=== PATIENT | female | born 1965 | race Caucasian/White ===

== ENCOUNTER 2025-04-21 08:50 | Day surgery (SDC) | payer BC ==
[2025-04-20 09:01] VITALS: BMI 32.1
[~2025-04-21 08:50] MED LIST: LIDOCAINE 1% (10MG/ML) FOR IV START INTRADERMA PRN; ONDANSETRON 4 MG/2 ML VIAL IVP PRN
[2025-04-21 09:40] VITALS: RESP 16; TEMP 97.7
[2025-04-21] MEDS: LACTATED RINGERS 1,000 ML IV SCH (09:40)
[2025-04-21] MEDS: IV FLUID CONTINUATION 1,000 ML IV ONE (10:18)
[2025-04-21] MEDS ORDERED: PROPOFOL 10 MG/ML 20 ML VIAL IV ONE (10:20)
--- NOTE | 2025-04-21 10:49 | P.PCN ---
Date of Procedure: 04/21/25 Procedure(s) Performed: BRIEF HISTORY: Patient is a 60-year-old pleasant white female scheduled for an elective colonoscopy as a part of screening for colon cancer. PROCEDURE PERFORMED: Colonoscopy up to hepatic flexure. PREOPERATIVE DIAGNOSIS: Screening for colon cancer. IV sedation per Anesthesia. PROCEDURE: After informed consent was obtained, the patient, was brought into the endoscopy unit. IV sedation was administered by Anesthesia under continuous monitoring. Digital rectal examination was normal. Initially the Olympus CF-160 flexible video colonoscope was then inserted in the rectum, gradually advanced into the hepatic flexure and despite multiple attempts and giving abdominal pressure I was not able to advance the scope any further. The scope was removed and a pediatric colonoscopy was then introduced to the rectum and gradually advanced into the transverse colon and once again despite multiple attempts with abdominal pressure and changing patient's position I was not able to advance the scope any further. At this time the scope was gradually being withdrawn. Prep was excellent. Mucosa, transverse colon, descending colon, sigmoid colon, and rectum appeared normal. Scattered sigmoid diverticulosis seen. Retroflexion was performed in the rectum and no lesions were seen. The patient tolerated the procedure well. IMPRESSION: Normal-appearing colon from rectum to hepatic flexure with no evidence of colitis or colorectal neoplasia Scattered sigmoid diverticulosis. RECOMMENDATIONS: Findings of this examination were discussed with the patient as well as her family. She will be scheduled for a barium enema to evaluate the right colon..
[2025-04-21 11:11] VITALS: BP 114/73; PULSE 63
--- NOTE | 2025-04-21 16:23 | FL ---
EXAMINATION TYPE: FL barium enema, single contrast DATE OF EXAM: 04/21/2025 COMPARISON: None CLINICAL INDICATION: Female, 60 years old with history of incomplete colonoscopy; PHH, chronic consti pation, incomplete screening colonoscopy today TECHNIQUE: A single contrast barium enema study is performed. A total of 2 minutes 19 seconds of fl uoroscopic time was utilized during procedure and 53 images obtained. Total dose area product (DAP) in uGy*m?, mGy*cm? (or similar): 150 mGycm2. FINDINGS: Labor Delivery Specialist view of the abdomen shows overall non-obstructive bowel gas pattern but with residua l prominent air throughout the colon. Decision is made to proceed with single contrast. Possible surg ical clips in the pelvis and cholecystectomy clips. There is prominent tortuosity involving the sigmoid colon, splenic flexure, as well as the transverse colon. Minimal diverticular changes seen along the mid sigmoid colon. No evidence of any mass or polyp, obstructing or constricting lesion throughout the colon allowing fo r single contrast technique. Appendix not visualized. The terminal ileum was refluxed and appears within normal limits. IMPRESSION: Single contrast barium enema demonstrating minimal mid sigmoid colonic diverticulosis. N o suspicious constricting colon mass is seen. Prominent redundancy of the sigmoid colon, splenic flex ure, and transverse colon. [facility], , 04/21/2025 4:21 PM
== END 2025-04-21 12:51 | disposition home or self-care (01) ==
LOC: ORWHC2ENDO 08:50
PROVIDERS: ATTEND Internal Medicine Gastroenterology
DX: Z12.11 Encounter for screening for malignant neoplasm of colon (principal); K57.30 Diverticulosis of large intestine without perforation or abscess without bleeding; I10 Essential (primary) hypertension; E78.5 Hyperlipidemia, unspecified; Z79.82 Long term (current) use of aspirin; Z79.899 Other long term (current) drug therapy; Z98.890 Other specified postprocedural states; Z88.0 Allergy status to penicillin; Z88.2 Allergy status to sulfonamides
CPT/HCPCS: 74270; 45378; J2704